=== PATIENT | male | born 1995 | race Caucasian/White ===

== ENCOUNTER 2018-07-25 18:20 | Observation (INO) | payer MEDICAID ==
[2018-07-25 18:25] LABS: A-aADO2 424; ABG HEMOGLOBIN 13.9; ABG POTASSIUM 3.7 (3.5-5.1); ARTERIAL BLD GAS O2 SATURATION 100.9 % (95-100); ARTERIAL BLOOD GAS FIO2 100 %; ARTERIAL BLOOD GAS PCO2 25 mmHg (35-45); ARTERIAL BLOOD GAS PO2 258 mmHg (75-100); ARTERIAL BLOOD GAS pH < 6.80 (7.35-7.45); CARBOXYHEMOGLOBIN 1.9 % THgb (0.0-6.9); HGB O2 SAT 98.4 g/dF (94-100); Lactic Acid > 20.0 (0.4-2.0); Methhemoglobin 0.6 % (1.4-1.5); paO2 pAO1 0.38
[2018-07-25 18:26] LABS: ABG SITE RIGHT BRACHIAL
[2018-07-25] MEDS ORDERED: Sodium Chloride 0.9% 1000 ML 1,000 ML ONE ×3 (18:33→22:06)
[2018-07-25] MEDS ORDERED: Sodium Chloride 0.9% 1000 ML 1,000 ML IV STA ×2 (18:39→18:41)
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
[2018-07-25 19:27] LABS: INR 1.13 (0.8-3.0); PROTIME 13.2 SECONDS (8.83-12.87)
[2018-07-25 19:39] LABS: ALBUMIN 4.7 g/dL (3.5-5.0); ANION GAP 34.6 MEQ/L (5-15); BILIRUBIN,TOTAL 0.3 mg/dL (0.2-1.3); Calcium 9.3 mg/dL (8.4-10.2); Creatinine 1 1.93 mg/dL (0.66-1.25); Potassium 4.4 mmol/L (3.5-5.1)
[2018-07-25 19:43] LABS: Barbiturate,Urine NEGATIVE (NEGATIVE); Benzodiazepine,Urine NEGATIVE (NEGATIVE); Cocaine,Urine NEGATIVE (NEGATIVE); Methadone,Urine NEGATIVE (NEGATIVE); PCP,Urine NEGATIVE (NEGATIVE); THC,Urine POSITIVE (NEGATIVE)
[2018-07-25] MEDS ORDERED: DUONEB 0.5-3 MG/3 ml Neb IH ONE ×4 (19:44→23:18)
[2018-07-25 19:45] LABS: Opiate,Urine NEGATIVE (NEGATIVE)
[2018-07-25 19:46] LABS: Hematocrit 42.6 % (42-50); Hemoglobin 13.6 gm/dl (12.5-18.0); Mean Corpuscular Hgb Concent. 31.9 g/dl (32-36); Mean Platelet Volume 10.9 fl (6-9.5); Platelet Count 397 K/mm3 (150-450); Red Blood Count 4.53 M/mm3 (4.1-5.6); Red Cell Distribution Width 13.4 % (11.5-14.0)
[2018-07-25] MEDS ORDERED: solu-MEDROL 125 MG IV ONE (19:47)
[2018-07-25] MEDS ORDERED: Levofloxacin 500MG/100ML D5W 500 MG/100 ML BAG IV STA (19:47)
[2018-07-25 19:48] LABS: White Blood Count 27.1 K/mm3 (4.0-10.5)
[2018-07-25 19:51] LABS: NT PRO BNP 50.9 pg/mL (0-450)
[2018-07-25] MEDS ORDERED: solu-MEDROL 125 MG ONE (19:56)
[2018-07-25] MEDS ORDERED: D5W IV ONE (19:56)
[2018-07-25] MEDS ORDERED: LEVOFLOXACIN 750 MG/150 ML IV ONE (19:56)
[2018-07-25] MEDS ORDERED: Levofloxacin 500MG/100ML D5W 500 MG/100 ML BAG IV ONE (20:01)
[2018-07-25] MEDS ORDERED: BABY ASPIRIN 81 MG CHEW PO ONE (20:04)
[2018-07-25] MEDS ORDERED: BABY ASPIRIN 81 MG CHEW ONE (20:17)
[2018-07-25 20:33] LABS: Amphetamine,Urine POSITIVE (NEGATIVE)
[2018-07-25 20:47] LABS: Lactic Acid 2.6 (0.4-2.0)
[2018-07-25 20:48] LABS: A-aADO2 39; ABG HEMOGLOBIN 13.2; ABG POTASSIUM 3.7 (3.5-5.1); ARTERIAL BLD GAS O2 SATURATION 93.5 % (95-100); ARTERIAL BLOOD GAS BASE EXCESS -9.2 (-2.0-2.0); ARTERIAL BLOOD GAS FIO2 21 %; ARTERIAL BLOOD GAS PCO2 33 mmHg (35-45); ARTERIAL BLOOD GAS PO2 69 mmHg (75-100); HCO3- 16.2 (22-28); HGB O2 SAT 91.6 g/dF (94-100); Methhemoglobin 0.9 % (1.4-1.5); paO2 pAO1 0.64
[2018-07-25 20:49] LABS: ABG SITE RIGHT RADIAL; ALLEN TEST OK? YES
[2018-07-25 21:25] LABS: ANION GAP 18.9 MEQ/L (5-15); Calcium 8.7 mg/dL (8.4-10.2); Creatinine 1 1.62 mg/dL (0.66-1.25); Potassium 4.4 mmol/L (3.5-5.1)
[2018-07-25] MEDS ORDERED: Ativan 2 MG/1 ML VIAL IV ONE (21:50)
[2018-07-25 22:02] LABS: INFLUENZA A NEGATIVE (NEGATIVE); INFLUENZA B NEGATIVE (NEGATIVE); RESPIRATORY SYNCTIAL VIRUS NEGATIVE (Negative)
[2018-07-25] MEDS ORDERED: Ativan 2 MG/1 ML VIAL ONE (22:03)
[2018-07-25] MEDS ORDERED: Sodium Chloride 0.9% 1000 ML 1,000 ML IV SCH (22:15)
[2018-07-25] MEDS ORDERED: Vancomycin 1GM/ Ns 250ML*** 1 GM/250 ML IVPB IV ONE (23:11)
[2018-07-25] MEDS ORDERED: Vancomycin 1GM/ Ns 250ML*** 250 ML IV ONE ×2 (23:47→23:48)
[2018-07-26] MEDS ORDERED: TYLENOL 325 MG PO PRN (01:08)
[2018-07-26] MEDS ORDERED: Xopenex 1.25 MG/0.5 ML UD NEBULE IH PRN (01:08)
[2018-07-26] MEDS ORDERED: DUONEB 0.5-3 MG/3 ml Neb IH PRN (01:08)
[2018-07-26] MEDS ORDERED: VANCOCIN 1 GM VIAL*** 1 GM in Sodium Chloride 0.9% 250 ML 250 ML IV SCH (01:08)
[2018-07-26] MEDS ORDERED: solu-MEDROL 40 MG IV SCH (01:08)
[2018-07-26 02:27] LABS: BAND 6 % (0.0-2.0); Basophil 1 % (0.0-1.0); Eosinophil 3 % (0.00-3.0); Lymphocytes 14 % (24-44); Metamyelocyte 4 %; Monocyte 3 % (0.0-12.0); Myelocyte 7 %; Neutrophils 60 % (36.-66.); Promyelocyte 1 %; Total Cells Counted 100
[2018-07-26 02:44] LABS: Platelet Estimate NORMAL (NORMAL); Poikilocytosis 1+
[2018-07-26] MEDS ORDERED: Sodium Chloride 0.9% 1000 ML 1,000 ML ONE (03:00)
[2018-07-26] MEDS ORDERED: Sodium Chloride 0.9% 1000 ML 1,000 ML IV SCH (03:15)
[2018-07-26 04:18] LABS: ANION GAP 17.8 MEQ/L (5-15); BLOOD UREA NITROGEN 15 mg/dL (9-20); CHLORIDE 108 mmol/L (98-107); Calcium 8.5 mg/dL (8.4-10.2); Carbon Dioxide 18 mmol/L (22-30); Creatinine 1 1.12 mg/dL (0.66-1.25); Glucose 108 mg/dL (74-106); Potassium 4.5 mmol/L (3.5-5.1); SODIUM 139 mmol/L (137-145)
[2018-07-26 04:20] VITALS: BP 153/78; PULSE 90; O2SAT 99
[2018-07-26 04:22] LABS: Basophil (Absolute #) 0.01 (0-0.4); Eosinophil (Absolute #) 0 (0-0.5); Granulocyte Absolute (ANC) 24.52 (1.4-6.9); Granulocytes % 92.6 % (36.0-66.0); Hematocrit 41.1 % (42-50); Hemoglobin 13.9 gm/dl (12.5-18.0); Lymphocyte (Absolute #) 0.83 (1.0-4.6); Lymphocytes % 3.1 % (24.0-44.0); Mean Cell Volume 89.2 fl (78-100); Mean Corpuscular Hemoglobin 30.2 pg (26-32); Mean Corpuscular Hgb Concent. 33.8 g/dl (32-36); Mean Platelet Volume 10.4 fl (6-9.5); Monocyte (Absolute #) 1.15 (0.0-1.3); Monocytes % 4.3 % (0.0-12.0); Platelet Count 316 K/mm3 (150-450); Red Blood Count 4.61 M/mm3 (4.1-5.6); Red Cell Distribution Width 13.7 % (11.5-14.0)
[2018-07-26 04:32] LABS: White Blood Count 26.5 K/mm3 (4.0-10.5)
[2018-07-26 05:49] LABS: BAND 18 % (0.0-2.0); Lymphocytes 7 % (24-44); Monocyte 1 % (0.0-12.0); Neutrophils 74 % (36.-66.); Total Cells Counted 100
[2018-07-26 06:00] LABS: Platelet Estimate NORMAL (NORMAL)
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
--- NOTE | 2018-07-26 09:09 | XRAY ---
Indication: Hypothermia. Comparison: None Portable chest demonstrates normal heart, lungs, and bony thorax.
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
[2018-07-26] MEDS ORDERED: solu-MEDROL 125 MG IV SCH (10:00)
[2018-07-26] MEDS ORDERED: Levofloxacin 500MG/100ML D5W 500 MG/100 ML BAG IV SCH (20:00)
== END 2018-07-26 06:10 | disposition left against medical advice (07) ==
LOC: ED 18:20 → ICU 07-26 00:32
PROVIDERS: ADMIT Family Medicine; ATTEND Family Medicine
DX: T68.XXXA Hypothermia, initial encounter (principal); J18.9 Pneumonia, unspecified organism; F19.10 Other psychoactive substance abuse, uncomplicated
CPT/HCPCS: 36415; 51702; 71260; 80048; 80053; 80307; 82375; 82803; 83605; 83735; 83880; 84484; 85025; 85379; 85610; 87040; 87631; 93005; 93041; 94640; 96360; 96361; 96365; 96367; 96374; 96375; 99291; 99292; G0378; 36000; 36600; 71045; 99285; J1956; J2060; J2920; J2930; J3370; A9270-GY; G0480